=== PATIENT | female | born 1985 | race Two or more races ===

== ENCOUNTER 2017-06-13 13:58 | Emergency (ER) | payer MEDICAID ==
[~2017-06-13] VITALS: Ht 162.6 cm; Wt 61.2 kg
[2017-06-13 14:10] VITALS: BP 110/91
--- NOTE | 2017-06-13 14:45 | Emergency Room Report ---
History of Present Illness General Chief Complaint: Seizure Source: Patient, EMS Present Illness HPI 31YOF BIBEMS for witnessed seizure, witnessed by friend Post-ictal when EMS arrived No additional seizure activity on scene Patient states last seizure was march 2010 Takes keppra, clorazepic acid - is compliant. Didnt take keppra this morning. States takes 500mg BID Denies trauma/fall C/o post-seizure headache which she states is common Allergies: Coded Allergies: No Known Allergies (Unverified , 06/13/17) Patient History Past Medical History: seizures Past Surgical History: none Pertinent Family History: none Social History: Denies: smoking, alcohol use, drug use Now: No Immunizations: UTD Reviewed Nursing Documentation: PMH: Agreed, PSxH: Agreed Nursing Documentation-PMH Past Medical History: No History, Except For Hx Seizures: Yes Review of Systems All Other Systems: negative except mentioned in HPI Physical Exam Vital Signs Date Time Temp Pulse Resp B/P (MAP) Pulse Ox O2 Delivery O2 Flow Rate FiO2 06/13/17 13:54 97.3 107 18 138/82 99 Room Air Sp02 EP Interpretation: reviewed, normal General Appearance: normal inspection, well appearing, no apparent distress, alert, GCS 15, non-toxic Head: normocephalic, atraumatic Eyes: bilateral eye PERRL, bilateral eye EOMI ENT: normal ENT inspection, hearing grossly normal, normal voice Neck: normal inspection, full range of motion, supple, no bony tend Respiratory: normal inspection, lungs clear, normal breath sounds, no respiratory distress, no retraction, no wheezing Cardiovascular #1: regular rate, rhythm, no edema Gastrointestinal: normal inspection, normal bowel sounds, non tender, soft, no guarding, no hernia Genitourinary: no CVA tenderness Musculoskeletal: normal inspection, back normal, normal range of motion, Saurabh' s Sign negative Neurologic: normal inspection, alert, oriented x3, responsive, 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 Afebrile Not post-ictal currently Likely breakthru seizure Was given PO dose of her Keppra that she takes BID Observed in ED for multiple hours without additional seizure Friend/roomate came by later - brought meds Patient NOT on Keppra Takes Carbamezepine - roomate states she hasnt taken in months But does confirm no seizures since 2009 Has followup appt at [facility] tomorrow No additional seizures in ED DC home Rhythm Strip Diag. Results EP Interpretation: yes Rate: 86 Rhythm: NSR, no PVC's, no ectopy Last Vital Signs Date Time Temp Pulse Resp B/P (MAP) Pulse Ox O2 Delivery O2 Flow Rate FiO2 06/13/17 13:54 97.3 107 18 138/82 99 Room Air Status: improved Disposition: HOME, SELF-CARE BRAD WEEKS M.D. Jun 13, 2017 14:45
[2017-06-13 15:30] VITALS: BP 102/73
[2017-06-13] MEDS ORDERED: CARBAMAZEPINE200 M4 ORAL (16:01)
[2017-06-13] MEDS ORDERED: OMEPRAZOLE20 M2 ORAL (16:08)
[2017-06-13] MEDS ORDERED: CLORAZEPATE D3.75 MG PO (16:08)
[2017-06-13] MEDS ORDERED: IBUPROFEN600 MG ORAL (16:08)
[2017-06-13] MEDS ORDERED: ALAWAY10 ML OP (16:08)
[2017-06-13] MEDS ORDERED: FOLIC ACID1 M1 PO (16:08)
[2017-06-13 16:30] VITALS: BP 113/76
--- NOTE | 2017-06-18 12:14 | Cardiology Report ---
APPROVED REPORT EKG Measurement Heart [id number] Normal sinus rhythm Normal ECG
== END 2017-06-13 16:30 | disposition home or self-care (01) ==
LOC: EDBD 13:58 → EMR 14:50
DX: G40.909 Epilepsy, unspecified, not intractable, without status epilepticus (principal)
CPT/HCPCS: 80299; 93005; 99284